=== PATIENT | female | born 1960 | race Asian ===

== ENCOUNTER 2023-12-15 06:03 | Day surgery (SDC) | payer OTHER ==
[~2023-12-15] VITALS: Ht 154.9 cm; Wt 54.5 kg
[2023-12-15] MEDS ORDERED: SODIUM CHLORIDE 0.9% 1,000 ML ONE (06:54)
[2023-12-15] MEDS ORDERED: MONT-35 PO (07:24)
[2023-12-15] MEDS ORDERED: DIVA500T53 PO (07:26)
[2023-12-15] MEDS ORDERED: CHOL25TA4 PO (07:27)
[2023-12-15] MEDS ORDERED: GABA-1181 PO (07:28)
[2023-12-15] MEDS ORDERED: METF-1211 PO (07:28)
[2023-12-15] MEDS ORDERED: PRED-563 PO (07:29)
[2023-12-15] MEDS ORDERED: ATOR10TA PO (07:32)
[2023-12-15] MEDS ORDERED: CITA10TA99 PO (07:32)
[2023-12-15] MEDS ORDERED: FAMO20 PO (07:33)
[2023-12-15] MEDS ORDERED: BACL10TA PO (07:34)
[2023-12-15] MEDS ORDERED: TRAM50TA5 PO (07:38)
[2023-12-15] MEDS ORDERED: ALBU18HF12 IH (07:40)
[2023-12-15] MEDS: SODIUM CHLORIDE 0.9% 1,000 ML IV ONE (07:40)
[2023-12-15 07:51] LABS: GLUCOMETER DEV NAME(LOC) SDS.; GLUCOSE,POINT OF CARE 103 MG/DL (70-110)
[2023-12-15] MEDS ORDERED: MIDAZOLAM HCL 2 MG/2 ML VIAL ONE (08:04)
[2023-12-15] MEDS ORDERED: FentaNYL CITRATE PF 100 MCG/2 ML VIAL ONE (08:04)
[2023-12-15 09:06] VITALS: PULSE 72; RESP 12; O2SAT 100
[2023-12-15] MEDS ORDERED: MethylPREDNISolone SOD SUCC 125 MG/2 ML VIAL ONE (09:36)
[2023-12-15] MEDS: MethylPREDNISolone SOD SUCC 125 MG/2 ML VIAL IVP ONE (09:43)
[2023-12-15] MEDS ORDERED: ALBUTEROL SULFATE 2.5 MG/0.5 ML NEB SOLUTION NEB ONE (12:00)
[2023-12-15] MEDS ORDERED: LIDOCAINE 2% 11 ML JELLY TP ONE (12:00)
[2023-12-15] MEDS ORDERED: LIDOCAINE 4% 50 ML SOLUTION TP ONE (12:00)
[2023-12-15] MEDS ORDERED: BENZOCAINE 20% 50 MCG/SPRAY 57 GM TP ONE (12:00)
== END 2023-12-15 11:40 | disposition home or self-care (01) ==
LOC: SURGERY 06:03
PROVIDERS: ATTEND Internal Medicine Critical Care Medicine
DX: J38.4 Edema of larynx (principal); B37.0 Candidal stomatitis; Z79.899 Other long term (current) drug therapy; E11.9 Type 2 diabetes mellitus without complications; Z98.890 Other specified postprocedural states
CPT/HCPCS: 31623; 82962; 87206; 87101; 87220; 87070; 88108; 31624; 94640; 71045; 87015; J3010; J2250; J2930; Q9967; J7030; J7613; Z7610